=== PATIENT | female | born 1975 | race Hispanic/Latino ===

== ENCOUNTER 2017-11-25 16:59 | Emergency (ER) | payer SELFPAY | END 2017-11-25 18:21 | disposition left against medical advice (07) | LOC: ER 16:59 | DX: Z53.21 Procedure and treatment not carried out due to patient leaving prior to being seen by health care provider (principal) ==

== ENCOUNTER → 2019-10-15 | Outpatient (CLI) | payer OTHER | LOC: MAMMO 15:51 | PROVIDERS: ATTEND Internal Medicine | DX: Z12.31 Encounter for screening mammogram for malignant neoplasm of breast (principal) | CPT/HCPCS: 77067 ==

== ENCOUNTER → 2020-03-29 | Day surgery (SDC) | payer BC, OTHER ==
[~2020-03-29] MED LIST: BUPIVACAINE HCL 0.5% INJ 30 ML VIAL INJ ONE; CEFAZOLIN SOD 1 GM/NS 50ML 100 ML IV ONE; DEXAMETHASONE SOD PHOS INJ 4 MG/ML VIAL ONE; FENTANYL CITRATE/PF 100MCG/2 ML INJ ONE; KETOROLAC TROMETHAMINE 30 MG/ML VIAL ONE; LIDOCAINE HCL 2% LOCAL INJ 5 ML SDV VIAL INJ ONE; MIDAZOLAM HCL 2 MG/2 ML VIAL ONE; NEOMYCIN/POLYMYX/BACITR OINT 0.9 GM PKT ONE; OMEPRAZOLE40 MG PO; ONDANSETRON HCL INJ 2MG/ML 2ML 2 MG/ML VIAL ONE; PROPOFOL IV EMULSION 10 MG/ML 20 ML VIAL ONE; SEVOFLURANE INHAL SOLN 250 ML PEN BTL ONE
--- OUTSIDE RECORDS SUMMARY | 2020-03-29 05:37 | XMS REPORT | Summary of Care ---
Author Author [facility] Outpatient Imaging - [facility] Organization [facility] Outpatient Imaging - [facility] Address Unknown Phone Unavailable Encounter HQ Encntr_alias(FIN) [id number] Date(s): 10/01/17 - 10/01/17 [facility] Outpatient Imaging - [place] [address] [place] [address] [phone] Final: Encounter for screening mammogram for malignant neoplasm of breast Discharge Disposition: Home or Self Care Attending Physician: Jw Davis MD Vital Signs No data available for this section Problem List No data available for this section Allergies, Adverse Reactions, Alerts No data available for this section Medications No data available for this section Results No data available for this section Immunizations No data available for this section Procedures No data available for this section Social History No data available for this section Assessment and Plan No data available for this section
--- OUTSIDE RECORDS SUMMARY | 2020-03-29 05:37 | XMS REPORT | Summary of Care ---
Author Author [facility] Outpatient Imaging - [facility] Organization [facility] Outpatient Imaging - [facility] Address Unknown Phone Unavailable Encounter HQ Encntr_alias(FIN) [id number] Date(s): 10/23/17 - 10/23/17 [facility] Outpatient Imaging - [place] [address] [place] [address] [place] [address] [phone] Discharge Disposition: Home or Self Care Attending [...]
--- OUTSIDE RECORDS SUMMARY | 2020-03-29 05:37 | XMS REPORT | Summary of Care ---
Author Author [facility] Outpatient Imaging - [facility] Organization [facility] Outpatient Imaging - [facility] Address Unknown Phone Unavailable Encounter HQ Encntr_alias(FIN) [id number] Date(s): 04/28/18 - 04/28/18 [facility] Outpatient Imaging - [address] [place] [address] [phone] Discharge Disposition: Home or Self Care Attending [...]
--- OUTSIDE RECORDS SUMMARY | 2020-03-29 05:37 | XMS REPORT ---
Author Author [facility] t Organization [facility] Address [address] [place] [address] Phone Unavailable Care Team Providers Care Wood Pattern Maker Name Role Phone Wendy Blevins Attphys Madalyn DONIS Attphys Unavailable Polly Gibson Attphys Uriel Davis Attphys Myke Davis Attphys Payers Payer Name Policy Type Policy Number Effective Date Expiration Date S ource Problems This patient has no known problems. Allergies, Adverse Reactions, Alerts Allergy Name Allergy Type Status Severity Reaction(s) Onset Date Inacti ve Date Treating Clinician Comments Source No Known Allergies DA Active U 2019-01-08 00:00:00 [facility] No Known Allergies DA Active U 2017-11-25 00:00:00 [facility] Medications This patient has no known medications. Procedures This patient has no known procedures. Encounters Start Date/Time End Date/Time Encounter Type Admission Type [facility] Care Department Encounter ID Source 2019-11-05 07:45:00 2019-11-05 23:59:00 [id number] Out patient Imaging - [place] 2018-10-30 10:07:00 2018-10-30 23:59:00 Outpatient Tamra Arita [facility] [id number] [facility] Out patient Imaging - [place] 2018-04-28 13:31:00 2018-04-28 23:59:00 Outpatient RyanPedrito philippe [facility] [id number] [facility] Imaging - [place] 2017-10-23 14:29:00 2017-10-23 23:59:00 Outpatient RyanPedritodo Trevino [facility] [id number] [facility] Imaging - [place] 2017-10-01 11:31:00 2017-10-01 23:59:00 Outpatient RyanPedrito Uriel [facility] [id number] [facility] Imaging - [place] 2016-09-28 10:04:00 2016-09-28 23:59:00 Outpatient RyanPedrito Myke [facility] [id number] [facility] Imaging - [place] Results Test Description Test Time Test Comments Results Result Comments Source MAMMOGRAPHY DIGITAL SCR BILAT 2019-10-15 16:31:00 [place] [address] Patient Name: CHRISTOPH JIANG MR #: [id number] : 1975 Age/Sex: 44/F Req #: [id number] [facility] Physician: Ordered by: DONAVAN DONIS MD Report #: [id number] Location: [facility] Room/Bed: Procedure: [id number] MG/MAMMOGRAPHY DIGITAL SCR BILAT Exam Date: 10/15/19 Exam Time: 1602 REPORT STATUS: Signed #[id number] - MGSCRBIL #BILATERAL DIGITAL SCREENING MAMMOGRAM WITH CAD: 10/15/2019 CLINICAL: Routine screening. Comparison is made to exams dated: 10/30/2018 mammogram and 10/30/2018 ultrasound - [facility]. Current study contains 4 films. The tissue of both breasts is heterogeneously dense. This may lower the sensitivity of mammography. Current study was also evaluated with a Computer Aided Detection (CAD) system. There are multiple stable benign fine calcifications throughout both breasts consistent with sclerosing adenosis. No significant masses, calcifications, or other findings are seen in either breast. IMPRESSION: BENIGN There is no mammographic evidence of malignancy. A 1 year screening mammogram is recommended. The patient will be notified by letter of the results. MOHIT briones/jayden:10/22/2019 15:42:08 Type Rolling Machine Operator: Mandy HERNANDEZ (R)), [facility] letter sent: Normal Exam Mammogram BI-RADS: 2 Benign Dictated By: MOHIT BOLTON MD 41 Transcribed By: JAYDEN on 10/22/191541 COPY TO: DONAVAN DONIS MD [facility] 2019-01-14 13:58:00 RUN DATE: 01/14/19 [place] [facility] PAGE 1 RUN TIME: 1358 Specimen Inquiry RUN USER: INTERFACE PATIENT: CHRISTOPH JIANG LOC: JOANNA U #: [id number] AGE/SX: 43/F ROOM: Madina2029 RE01/13/19REG DR: Jw Davis MD : 71 BED: A DIS: 01/14/19 STATUS: DIS Adalberto TLOC: SPEC #: [id number] RECD: 01/13/19 STATUS: DEQUAN RIZVI #: [id number] LATASHA: 01/13/19- SUBM DR: Jw Davis MD ENTERED: 01/13/19 SP TYPE: UTERUS OTHR DR: Ole Diop MD ORDERED: GROSS COPIES TO: Jw Davis MD [address] [facility] [place] [address] Ole Diop MD [address] [place] [address] MARKERS: ABNORMAL TISSUE, UTERUS PROCEDURES: GROSS (01/14/19-1308) TISSUES: UTERUS, NOS - CERVIX, BILATERAL FALLOPIAN TUBES CLINICAL HISTORY COLLECTION DATE: 01/13/19 MENORRHAGIA FINAL DIAGNOSIS Uterus with bilateral fallopian tubes, hysterectomy and bilateral salpingectomy: CERVIX, NO PATHOLOGIC ALTERATION ENDOMETRIUM, PROLIFERATIVE PATTERN WITH NO HISTOLOGIC EVIDENCE OF CHRONIC ENDOMETRITIS OR HYPERPLASIA MYOMETRIUM, SUPERFICIAL ADENOMYOSIS AND SMALL INTRAMURAL LEIOMYOMA SEROSA, FIBROFATTY ADHESIONS BILATERAL FALLOPIAN TUBES, TRANSECTED AND FIMBRIATED FALLOPIAN TUBES X 2 WITH NO PATHOLOGIC ALTERATION NEGATIVE FOR MALIGNANCY RRB/lynn A [id number] CONTINUED ON NEXT PAGE RUN DATE: 01/14/19 [facility] PAGE 2 RUN TIME: 1358 Specimen Inquiry RUN USER: INTERFACE SPEC #: [id number] PATIENT: CHRISTOPH JIANG #[id number] (Continued) MACROSCOPIC The specimen is received in formalin, labeled with the "uterus, cervix, bilateral fallopian tubes". The specimen consists of a previously opened uterus and detached fallopian tubes. The uterus measures: cornu to cornu 7.0 cm, anterior to posterior- 5.5 cm and fundus to cervix- 8.0 cm. The uterus with attached cervix weighs 237.7 grams. The ectocervix measures 4.0 x 3.0 cm. The endocervical canal measures 3.0 cm. The endocervical mucosa is villanueva and glistening with Nabothian cysts. The endometrial cavity measures 4.0 x 4.0 cm and is lined by a thin [id number]-[id number] glistening endometrium measuring up to 0.2 cm in thickness. Sectioning of the posterior wall of the myometrium shows a single well circumscribed villanueva-white nodule measuring 0.5 cm. There are minute portions of attached adipose tissue to the right parametrium, most likely representing omental adhesions. There is a 2.0 cm attached right fallopian tube and 2.5 cm attached left fallopian tube with no fimbriated end. Sectioning reveals no focal abnormality. Also received in the same container are two portions of fallopian tube with fimbriated ends measuring 2.5 and 4.5 cm in length, and 0.7 and 0.1 cm in diameter. Sectioning reveals no focal abnormality. Section code: 1A- anterior cervix; 1B- posterior cervix; 1C- anterior endomyometrium; 1D- pos terior endomyometrium including the small nodule; 1E- posterior serosa and adhesions of omental tissue to the right parametrium; 1F- special service representative sections of detached fallopian tube with fimbriated ends (no orientation as to right or left) and 1G- special service representative sections of fallopian attached fallopian tube. GROSS PERFORMED AT [facility] [address] [place] [address] (P)[phone] MICROSCOPIC All of the stains, including any controls performed, stain appropriately. MICROSCOPIC PERFORMED AT [facility] [address] [place] [address] (P)[phone] PERFORMING SITE Diagnosis performed at: [facility], [address] [address] CONTINUED ON NEXT PAGE RUN DATE: 01/14/19 [facility] PAGE 3 RUN TIME: 1358 Specimen Inquiry RUN USER: INTERFACE SPEC #: [id number] PATIENT: CHRISTOPH JIANG # [id number] (Continued) [facility] ([facility]) [phone] Signed SIGNATURE ON FILE Anjel Echeverria 01/14/19 1358 END OF REPORT CBC W/AUTO DIFF 2019-01-14 06:19:00 Test Item WHITE BLOOD CELL (test code = WBC) 14.3 K/mm3 4.5-12.5 H RED BLOOD CELL (test code = RBC) 4.44 mill/mm3 3.7-5.2 N HEMOGLOBIN (test code = HGB) 12.4 gram/dL 11.5-15.5 N HEMATOCRIT (test code = HCT) 38.9 % 36.0-46.0 N MEAN CELL VOLUME (test code = MCV) 87.6 fL 80-98 N MEAN CELL HGB (test code = MCH) 27.9 picogram 27.0-33.0 N MEAN CELL HGB CONCETRATION (test code = MCHC) 31.9 gram/dL 33.0-36. 0 L RED CELL DISTRIBUTION WIDTH (test code = RDW) 13.5 % 11.6-16. 2 N RED CELL DISTRIBUTION WIDTH SD (test code = RDW-SD) 43.9 fL 37 .0-51.0 N PLATELET COUNT (test code = PLT) 344 K/mm3 150-450 N MEAN PLATELET VOLUME (test code = MPV) 10.1 fL 6.7-11.0 N NEUTROPHIL % (test code = NT%) 68.9 % 39.0-69.0 N IMMATURE GRANULOCYTE % (test code = IG%) 0.5 % 0.0-5.0 N LYMPHOCYTE % (test code = LY%) 23.2 % 25.0-55.0 L MONOCYTE % (test code = MO%) 6.7 % 0.0-10.0 N EOSINOPHIL % (test code = EO%) 0.4 % 0.0-5.0 N BASOPHIL % (test code = BA%) 0.3 % 0.0-1.0 N NUCLEATED RBC % (test code = NRBC%) 0.0 % 0-0 N NEUTROPHIL # (test code = NT#) 9.85 K/mm3 1.8-7.7 H IMMATURE GRANULOCYTE # (test code = IG#) 0.07 x10 3/uL 0-0.03 H LYMPHOCYTE # (test code = LY#) 3.32 K/mm3 1.0-5.0 N MONOCYTE # (test code = MO#) 0.95 K/mm3 0-0.8 H EOSINOPHIL # (test code = EO#) 0.05 K/mm3 0.0-0.5 N BASOPHIL # (test code = BA#) 0.04 K/mm3 0.0-0.2 N NUCLEATED RBC # (test code = NRBC#) 0.00 K/mm3 0.0-0.1 N MANUAL DIFF REQUIRED (test code = MDIFF) NO CBC W/AUTO [id number] 06:01:00* Test Item Value Reference Range Interpretation Comments WHITE BLOOD CELL (test code = WBC) K/mm3 4.5-12.5 RED BLOOD CELL (test code = RBC) mill/mm3 3.7-5.2 HEMOGLOBIN (test code = HGB) 12.4 gram/dL 11.5-15.5 N HEMATOCRIT (test code = HCT) 38.9 % 36.0-46.0 N MEAN CELL VOLUME (test code = MCV) fL 80-98 MEAN CELL HGB (test code = MCH) picogram 27.0-33.0 MEAN CELL HGB CONCETRATION (test code = MCHC) gram/dL 33.0-36. 0 RED CELL DISTRIBUTION WIDTH (test code = RDW) % 11.6-16. 2 RED CELL DISTRIBUTION WIDTH SD (test code = RDW-SD) fL 37 .0-51.0 PLATELET COUNT (test code = PLT) K/mm3 150-450 MEAN PLATELET VOLUME (test code = MPV) fL 6.7-11.0 NEUTROPHIL % (test code = NT%) % 39.0-69.0 IMMATURE GRANULOCYTE % (test code = IG%) % 0.0-5.0 LYMPHOCYTE % (test code = LY%) % 25.0-55.0 MONOCYTE % (test code = MO%) % 0.0-10.0 EOSINOPHIL % (test code = EO%) % 0.0-5.0 BASOPHIL % (test code = BA%) % 0.0-1.0 NEUTROPHIL # (test code = NT#) K/mm3 1.8-7.7 LYMPHOCYTE # (test code = LY#) K/mm3 1.0-5.0 MONOCYTE # (test code = MO#) K/mm3 0-0.8 EOSINOPHIL # (test code = EO#) K/mm3 0.0-0.5 BASOPHIL # (test code = BA#) K/mm3 0.0-0.2 [id number] 16:50:00* Test Item Value Reference Range Interpretation Comments GLUBED (test code = GLUBED) 115 mg/dL 74-106 H Performed by certified barrel rifler operator at [facility] COMPREHENSIVE METABOLIC [id number] 14:24:00* Test Item Value Reference Range Interpretation Comments SODIUM (test code = NA) 138 mmol/L 136-145 N POTASSIUM (test code = K) 3.8 mmol/L 3.5-5.1 N CHLORIDE (test code = CL) 106.0 mmol/L 98-107 N CARBON DIOXIDE (test code = CO2) 30.0 mmol/L 21-32 N ANION GAP (test code = GAP) 5.8 10-20 L GLUCOSE (test code = GLU) 131 mg/dL 74-106 H BLOOD UREA NITROGEN (test code = BUN) 16 mg/dL 7-18 N GLOMERULAR FILTRATION RATE (test code = GFR) > 60 mL/min >=60 Estimated GFR by using Modified MDRD formula.Chronic kidney disease is defined as either kidney damageor GFR <60 mL/min/1.73 m2 for >3 months. CREATININE (test code = CREAT) 0.60 mg/dL 0.55-1.02 N Note change in reference range due to change in reagent. BUN/CREATININE RATIO (test code = BUN/CREA) 25.6 10-20 H TOTAL PROTEIN (test code = PROT) 7.8 gram/dL 6.4-8.2 N ALBUMIN (test code = ALB) 3.4 g/dL 3.4-5.0 N GLOBULIN (test code = GLOB) 4.4 gram/dL 2.7-4.2 H ALBUMIN/GLOBULIN RATIO (test code = A/G) 0.8 0.75-1.50 N CALCIUM (test code = CA) 8.1 mg/dL 8.5-10.1 L BILIRUBIN TOTAL (test code = BILT) 0.40 mg/dL 0.0-1.0 N SGOT/AST (test code = AST) 18 IUnit/L 15-37 N SGPT/ALT (test code = ALT) 33 IUnit/L 12-78 N ALKALINE PHOSPHATASE TOTAL (test code = ALKP) 118 IUnit/L 45-117 H Note change in reference range due to change in reagent. HCG SERUM [id number] 14:24:00* Test Item Value Reference Range Interpretation Comments HCG SERUM QUAL (test code = HCGQL) NEGATIVE NEGATIVE This HCGQL test is NOT applicable for MALE patients.Check with nurse about probable order error.If Tumor Marker Test needed, nurse should order test "HCGTU"(Test #550.74076) COMPREHENSIVE METABOLIC [id number] 14:15:00* Test Item Value Reference Range Interpretation Comments SODIUM (test code = NA) 138 mmol/L 136-145 N POTASSIUM (test code = K) 3.8 mmol/L 3.5-5.1 N CHLORIDE (test code = CL) 106.0 mmol/L 98-107 N CARBON DIOXIDE (test code = CO2) mmol/L 21-32 ANION GAP (test code = GAP) 10-20 GLUCOSE (test code = GLU) mg/dL 74-106 BLOOD UREA NITROGEN (test code = BUN) mg/dL 7-18 GLOMERULAR FILTRATION RATE (test code = GFR) mL/min >=60 CREATININE (test code = CREAT) mg/dL 0.55-1.02 BUN/CREATININE RATIO (test code = BUN/CREA) 10-20 TOTAL PROTEIN (test code = PROT) gram/dL 6.4-8.2 ALBUMIN (test code = ALB) g/dL 3.4-5.0 GLOBULIN (test code = GLOB) gram/dL 2.7-4.2 ALBUMIN/GLOBULIN RATIO (test code = A/G) 0.75-1.50 CALCIUM (test code = CA) mg/dL 8.5-10.1 BILIRUBIN TOTAL (test code = BILT) mg/dL 0.0-1.0 SGOT/AST (test code = AST) IUnit/L 15-37 SGPT/ALT (test code = ALT) IUnit/L 12-78 ALKALINE PHOSPHATASE TOTAL (test code = ALKP) IUnit/L 45-117 HCG SERUM [id number] 14:15:00* Test Item Value Reference Range Interpretation Comments HCG SERUM QUAL (test code = HCGQL) NEGATIVE NEGATIVE This HCGQL test is NOT applicable for MALE patients.Check with nurse about probable order error.If Tumor Marker Test needed, nurse should order test "HCGTU"(Test #550.06852) COMPREHENSIVE METABOLIC [id number] 14:12:00* Test Item Value Reference Range Interpretation Comments SODIUM (test code = NA) 138 mmol/L 136-145 N POTASSIUM (test code = K) 3.8 mmol/L 3.5-5.1 N CHLORIDE (test code = CL) 106.0 mmol/L 98-107 N CARBON DIOXIDE (test code = CO2) mmol/L 21-32 ANION GAP (test code = GAP) 10-20 GLUCOSE (test code = GLU) mg/dL 74-106 BLOOD UREA NITROGEN (test code = BUN) mg/dL 7-18 GLOMERULAR FILTRATION RATE (test code = GFR) mL/min >=60 CREATININE (test code = CREAT) mg/dL 0.55-1.02 BUN/CREATININE RATIO (test code = BUN/CREA) 10-20 TOTAL PROTEIN (test code = PROT) gram/dL 6.4-8.2 ALBUMIN (test code = ALB) g/dL 3.4-5.0 GLOBULIN (test code = GLOB) gram/dL 2.7-4.2 ALBUMIN/GLOBULIN RATIO (test code = A/G) 0.75-1.50 CALCIUM (test code = CA) mg/dL 8.5-10.1 BILIRUBIN TOTAL (test code = BILT) mg/dL 0.0-1.0 SGOT/AST (test code = AST) IUnit/L 15-37 SGPT/ALT (test code = ALT) IUnit/L 12-78 ALKALINE PHOSPHATASE TOTAL (test code = ALKP) IUnit/L 45-117 HCG SERUM [id number] 14:12:00* Test Item Value Reference Range Interpretation Comments HCG SERUM QUAL (test code = HCGQL) NEGATIVE CBC W/AUTO [id number] 13:29:00* Test Item Value Reference Range Interpretation Comments WHITE BLOOD CELL (test code = WBC) 8.6 K/mm3 4.5-12.5 N RED BLOOD CELL (test code = RBC) 4.78 mill/mm3 3.7-5.2 N HEMOGLOBIN (test code = HGB) 13.4 gram/dL 11.5-15.5 N HEMATOCRIT (test code = HCT) 41.3 % 36.0-46.0 N MEAN CELL VOLUME (test code = MCV) 86.4 fL 80-98 N MEAN CELL HGB (test code = MCH) 28.0 picogram 27.0-33.0 N MEAN CELL HGB CONCETRATION (test code = MCHC) 32.4 gram/dL 33.0-36. 0 L RED CELL DISTRIBUTION WIDTH (test code = RDW) 13.2 % 11.6-16. 2 N RED CELL DISTRIBUTION WIDTH SD (test code = RDW-SD) 41.9 fL 37 .0-51.0 N PLATELET COUNT (test code = PLT) 350 K/mm3 150-450 N MEAN PLATELET VOLUME (test code = MPV) 9.8 fL 6.7-11.0 N NEUTROPHIL % (test code = NT%) 59.5 % 39.0-69.0 N IMMATURE GRANULOCYTE % (test code = IG%) 0.3 % 0.0-5.0 N LYMPHOCYTE % (test code = LY%) 32.6 % 25.0-55.0 N MONOCYTE % (test code = MO%) 5.9 % 0.0-10.0 N EOSINOPHIL % (test code = EO%) 1.4 % 0.0-5.0 N BASOPHIL % (test code = BA%) 0.3 % 0.0-1.0 N NUCLEATED RBC % (test code = NRBC%) 0.0 % 0-0 N NEUTROPHIL # (test code = NT#) 5.11 K/mm3 1.8-7.7 N IMMATURE GRANULOCYTE # (test code = IG#) 0.03 x10 3/uL 0-0.03 N LYMPHOCYTE # (test code = LY#) 2.81 K/mm3 1.0-5.0 N MONOCYTE # (test code = MO#) 0.51 K/mm3 0-0.8 N EOSINOPHIL # (test code = EO#) 0.12 K/mm3 0.0-0.5 N BASOPHIL # (test code = BA#) 0.03 K/mm3 0.0-0.2 N NUCLEATED RBC # (test code = NRBC#) 0.00 K/mm3 0.0-0.1 N MANUAL DIFF REQUIRED (test code = MDIFF) NO CBC W/AUTO [id number] 13:27:00* Test Item Value Reference Range Interpretation Comments WHITE BLOOD CELL (test code = WBC) K/mm3 4.5-12.5 RED BLOOD CELL (test code = RBC) mill/mm3 3.7-5.2 HEMOGLOBIN (test code = HGB) 13.4 gram/dL 11.5-15.5 N HEMATOCRIT (test code = HCT) 41.3 % 36.0-46.0 N MEAN CELL VOLUME (test code = MCV) fL 80-98 MEAN CELL HGB (test code = MCH) picogram 27.0-33.0 MEAN CELL HGB CONCETRATION (test code = MCHC) gram/dL 33.0-36. 0 RED CELL DISTRIBUTION WIDTH (test code = RDW) % 11.6-16. 2 RED CELL DISTRIBUTION WIDTH SD (test code = RDW-SD) fL 37 .0-51.0 PLATELET COUNT (test code = PLT) K/mm3 150-450 MEAN PLATELET VOLUME (test code = MPV) fL 6.7-11.0 NEUTROPHIL % (test code = NT%) % 39.0-69.0 IMMATURE GRANULOCYTE % (test code = IG%) % 0.0-5.0 LYMPHOCYTE % (test code = LY%) % 25.0-55.0 MONOCYTE % (test code = MO%) % 0.0-10.0 EOSINOPHIL % (test code = EO%) % 0.0-5.0 BASOPHIL % (test code = BA%) % 0.0-1.0 NEUTROPHIL # (test code = NT#) K/mm3 1.8-7.7 LYMPHOCYTE # (test code = LY#) K/mm3 1.0-5.0 MONOCYTE # (test code = MO#) K/mm3 0-0.8 EOSINOPHIL # (test code = EO#) K/mm3 0.0-0.5 BASOPHIL # (test code = BA#) K/mm3 0.0-0.2
--- OUTSIDE RECORDS SUMMARY | 2020-03-29 05:37 | XMS REPORT | Summary of Care ---
Author Author [facility] Outpatient Imaging - [facility] Organization [facility] Outpatient Imaging - [facility] Address Unknown Phone Unavailable Encounter HQ Encntr_alias(FIN) [id number] Date(s): 09/28/16 - 09/28/16 [facility] Outpatient Imaging - [place] [address] [place] [phone] Discharge Disposition: Home or Self Care Attending [...]
--- OUTSIDE RECORDS SUMMARY | 2020-03-29 05:37 | XMS REPORT | Continuity of Care Document ---
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 11/05/2019 [facility] [place] Other abnormal and inconclusive findings on diagnostic imaging of breast 11/07/2018 05/20/2019 [facility] [place] Z12.31 - ENCNTR SCREEN MAMMOGRAM FOR MA Active 08/23/2016 [facility] [place] R88 - ABNORMAL FINDINGS IN OTHER BOD Active 10/07/2015 [facility] [place] Encounter for screening mammogram for ma lignant neoplasm of breast 10/04/2017 [facility] [place] Unspecified lump in the right breast, up per outer quadrant 05/20/2019 [facility] [place] Solitary cyst of right breast 05/20/2019 [facility] [place] Family history of malignant neoplasm of breast 05/20/2019 [facility] [place] Medications No Data Provided for This Section Allergies, Adverse Reactions, Alerts No Known Medication Allergies Immunizations No Data Provided for This Section Results No Data Provided for This Section Pathology Reports No Data Provided for This Section Diagnostic Reports Report Value Date Source Ankle wo contrast MRI EXAMINAT ION: MR left ankle without contrast HISTORY: M72.2 Plantar fascial fibromatosis; left hindfoot plantar fasciitis COMPARISON: There are no radiographs available for review. TECHNIQUE: Multiplanar, multisequence magnetic resonance imaging of the left ankle and hindfoot is performed with an extremity coil without contrast. FINDINGS: Ligaments: Lateral: AITFL and PITFL: The anterior/inferior tibiofibular and posterior/inferior tibiofibular syndesmotic ligaments are intact. ATFL: The anterior talofibular ligament is intact, but mildly thickened. CFL: The calcaneofibular ligament is intact. Medial: Deltoid complex: The superficial and deep components of the deltoid ligament complex including the tibiospring ligament and superomedial component of the calcaneonavicular spring ligament are within normal limits. Tendons: Medial flexor: The medial flexor tendons are within normal limits. Note is made of a small, type I, accessory navicular bone. Peroneal: The lateral peroneal tendons are within normal limits. Extensor: The anterior ankle extensor tendons are within normal limits. Achilles tendon: The Achilles tendon is within normal limits. Plantar fascia: There is mild to moderate focal fascial thickening, increased intrafascial signal, and perifascial edema involving the medial cord of the plantar fascia at its calcaneal attachment, but there is no discrete tear of the plantar fascia (series 4, image 11 and series 6, image 13). There is also mild reactive bone marrow edema within the adjacent plantar posterior calcaneus. There is also a small focus of feathery edema involving the flexor digitorum brevis muscle along the undersurface of the plantar fascia, centered approximately 3.5 cm distal to the calcaneal attachment (series 4, image 19 and series 6, image 14. Muscles: Again, there is mild feathery edema involving the flexor digitorum brevis muscle adjacent to the plantar fascia. There is normal signal intensity and bulk of the remainder of the intrinsic foot musculature. Cartilage: There is no focal chondrosis or subchondral marrow edema. No osteochondral defects. Bone: As described above, there is mild bone marrow edema within the plantar posterior calcaneus adjacent to the site of plantar fasciitis, likely reactive bone marrow edema. There is a focus of susceptibility artifact along the distal aspect of the 1st metatarsal, likely representing postoperative changes from instrumented distal 1st metatarsal osteotomy. There is otherwise normal bone marrow signal intensity without evidence of acute fracture or osteonecrosis. Soft tissue: There is no tibiotalar or subtalar joint effusion. There is normal fatty signal within the sinus Tarsi. IMPRESSION: 1. Mild to moderate plantar fasciitis of the left hindfoot with mild reactive bone marrow edema within the adjacent plantar posterior calcaneus as described above. 2. Mildly thickened, but intact left ank le anterior talofibular ligament, likely representing chronic sequelae of a prior low-grade ligamentous sprain. 3. Focus of susceptibility artifact angelika g the distal aspect of the left 1st metatarsal, likely representing postoperative changes from ischium at the distal 1st metatarsal osteotomy. 11/05/2019 [facility] [place] Breast Complete [facility] US COMPLETE ULTRASOUND OF BOTH BREASTS AND AXILLA: 10/30/2018 CLINICAL: /Z80.3 Family History Of Malignant Neoplasm Of Breast. COMPARISON:Comparison is made to exams dated: 10/30/2018 mammogram, 04/28/2018 ultrasound, 10/23/2017 ultrasound, 10/23/2017 mammogram, 10/01/2017 mammogram, and 09/28/2016 mammogram - [facility]. TECHNIQUE: Color flow and real-time ultrasound of the right breast four quadrants, retroareolar, and axilla regions and ultrasound of the left breast four quadrants, retroareolar, and axilla regions were performed on the areas of interest. FINDINGS: There is a stable 0.8 cm x 0.5 cm x 0.5 cm oval mass with a circumscribed margin in the right breast at 10 o'clock middle depth 6 cm from the nipple. This oval mass is hypoechoic. There also is a stable 0.8 cm cluster of cysts in the right breast at 9 o'clock middle depth 4 cm from the nipple. Small scattered cysts are noted bilaterally. IMPRESSION: PROBABLY BENIGN RECOMMENDATION:The stable 0.8 cm x 0.5 cm x 0.5 cm oval mass in the right breast at 10 o'clock middle depth resembles a fibroadenoma and is probably benign. The stable 0.8 cm cluster of cysts in the right breast at 9 o'clock middle depth is probably benign. A follow-up mammogram and an ultrasound in 12 months is recommended.(10/30/2019) This exam was interpreted at [id number] for VERONICA Montemayor, SL 15. Professional services are provided by the [facility]. Skip Garcia M.D., cm/jayden:10/30/2018 13:58:29 Projection Engineer(s): RT Shandra(R)(M), [facility] letter sent: BI-RADS 3 Ultrasound BI-RADS: 3 Probably benign 10/30/2018 [facility]ON[facility] Montemay[facility] Breast Mammo Diag [facility] incl CAD MA BILATERAL DIGITAL DIAGNOSTIC MAMMOGRAM WITH CAD: 10/30/2018 CLINICAL: Other Abnormal And Inconclusive Findings On Diagnostic Imaging Of Breast/R92.8. Current study was evaluated with a Computer Aided Detection (CAD) system. COMPARISON:Comparison is made to exams dated: 10/23/2017 mammogram, 10/01/2017 mammogram, 09/28/2016 mammogram - [facility], and 09/06/2015 mammogram - [facility]. TECHNIQUE: Mammographic views were obtained using digital acquisition. Current study was also evaluated with a Computer Aided Detection (CAD) system. FINDINGS: The tissue of both breasts is heterogeneously dense, which could obscure detection of small masses. Multiple bilateral asymmetries are stable when accounting for differences in positioning and technique. There are benign appearing calcifications in both breasts. No significant masses, calcifications, or other findings are seen in either breast. IMPRESSION: BENIGN RECOMMENDATION:There is no mammographic evidence of malignancy. A 1 year screening ultrasound is recommended.(10/31/2019) This exam was interpreted at [id number] for VERONICA Montemayor, SL 15. Professional services are provided by the [facility]. Skip Garcia M.D., cm/jayden:10/30/2018 11:09:56 Projection Engineer(s): RT Vannesa(R)(M), [facility] Mammogram BI-RADS: 2 Benign [facility] ULTRASOUND OF RIGHT BREAST: 04/28/2018 CLINICAL: 6 Month Follow Up Right Breast/N64.59 Other Signs And Symptoms In Breast. COMPARISON:Comparison is made to exams dated: 10/23/2017 ultrasound, 10/23/2017 mammogram, 10/01/2017 mammogram, 09/28/2016 mammogram - [facility], and 09/06/2015 mammogram - [facility]. TECHNIQUE: Color flow and real-time ultrasound of the right breast were performed on the areas of interest. FINDINGS: There is a stable 0.8 cm x 0.5 cm x 0.5 cm oval mass with a circumscribed margin in the right breast at 10 o'clock middle depth 6 cm from the nipple. This oval mass is hypoechoic. There also is a stable 0.8 cm cluster of cysts in the right breast at 9 o'clock middle depth 4 cm from the nipple. Small scattered cysts are noted bilaterally. IMPRESSION: PROBABLY BENIGN RECOMMENDATION:The stable 0.8 cm x 0.5 cm x 0.5 cm oval mass in the right breast at 10 o'clock middle depth resembles a complicated cyst or a fibroadenoma and is probably benign. The stable 0.8 cm cluster of cysts in the right breast at 9 o'clock middle depth is probably benign. A follow-up mammogram and an ultrasound in 6 months is recommended to demonstrate stability.(10/28/2018) This exam was interpreted at [id number] for VERONICA Montemayor, SL 15. Professional services are provided by the [facility]. Skip Garcia M.D., cm/jayden:04/28/2018 15:17:34 Projection Engineer(s): Sheila Ricardo [facility] letter sent: BI-RADS 3 Ultrasound BI-RADS: 3 Probably benign 04/28/2018 [facility] Breast Complete [facility] US CLINICAL: Bilateral Breast Asymmetries/N64.59 Other Signs And Symptoms In Breast. COMPARISON:Comparison is made to exams dated: 10/23/2017 mammogram, 10/01/2017 mammogram, 09/28/2016 mammogram - [facility], and 09/06/2015 mammogram - [facility]. TECHNIQUE: Color flow and real-time ultrasound of both breasts four quadrants, retroareolar, and axilla regions were performed on the areas of interest. FINDINGS: There is 0.8 cm x 0.5 cm x 0.5 cm oval mass with a circumscribed margin in the right breast at 10 o'clock middle depth 6 cm from the nipple. This oval mass is hypoechoic. There also is a 0.8 cm cluster of cysts in the right breast at 9 o'clock middle depth 4 cm from the nipple. No abnormalities were seen sonographically in the left breast or either axilla. Small scattered cysts are noted bilaterally. IMPRESSION: PROBABLY BENIGN RECOMMENDATION:The 0.8 cm x 0.5 cm x 0.5 cm oval mass in the right breast at 10 o'clock middle depth resembles a complicated cyst or a fibroadenoma and is probably benign. The 0.8 cm cluster of cysts in the right breast at 9 o'clock middle depth is probably benign. A follow-up ultrasound in 6 months is recommended to demonstrate stability.(04/24/2018) This exam was interpreted at [id number] for VERONICA Montemayor. Skip Garcia M.D. cm/penrad:10/23/2017 16:12:00 Projection Engineer(s): Sheila Ricardo, [facility] letter sent: BI-RADS 3 Ultrasound BI-RADS: 3 Probably benign 10/23/2017 [facility] Breast Mammo Diag [facility] incl CAD MA CLINICAL: N64.59/Other Signs And Symptoms In Breast. Current study was evaluated with a Computer Aided Detection (CAD) system. COMPARISON:Comparison is made to exams dated: 10/01/2017 mammogram, 09/28/2016 mammogram - [facility], and 09/06/2015 mammogram - [facility]. TECHNIQUE: Mammographic views were obtained using digital acquisition. Current study was also evaluated with a Computer Aided Detection (CAD) system. FINDINGS: The tissue of both breasts is heterogeneously dense, which could obscure detection of small masses. There is 1 cm x 7.4 cm equal density asymmetry in the right breast posterior depth medial region seen on the craniocaudal view only. This finding becomes less prominent on spot images and may represent overlapping tissue. There is 0.7 cm asymmetry in the left breast middle depth lateral region seen on the craniocaudal view only 9.4 cm from the nipple. This finding becomes less prominent on spot images and may represent overlapping tissue. No other significant masses or calcifications are seen in either breast. IMPRESSION: INCOMPLETE: NEEDS ADDITIONAL IMAGING EVALUATION RECOMMENDATION:The 1 cm x 7.4 cm equal density asymmetry in the right breast posterior depth medial region seen on the craniocaudal view only is indeterminate. An ultrasound is recommended. The 0.7 cm asymmetry in the left breast middle depth lateral region seen on the craniocaudal view only is indeterminate. An ultrasound is recommended. This exam was interpreted at [id number] for VERONICA Montemayor. Skip Garcia M.D. cm/penrad:10/23/2017 15:29:32 Projection Engineer(s): Misa Du, RT(R)(M), [facility] Mammogram BI-RADS: 0 Indeterminate 10/23/2017 [facility] Breast Mammo Scrn [place] incl CAD MA BILATERAL DIGITAL SCREENING MAMMOGRAM WITH CAD: 10/01/2017 CLINICAL: Encounter For Screening Mammogram For Malignant Neoplasm Of Breast/Z12.31. Current study was evaluated with a Computer Aided Detection (CAD) system. COMPARISON:Comparison is made to exams dated: 09/28/2016 mammogram - [facility] and 09/06/2015 mammogram - [facility]. TECHNIQUE: Mammographic views were obtained using digital acquisition. Current study was also evaluated with a Computer Aided Detection (CAD) system. The tissue of both breasts is heterogeneously dense, which could obscure detection of small masses. FINDINGS: There is 1 cm x 7.4 cm equal density asymmetry in the right breast middle depth medial region seen on the craniocaudal view only. There is 0.7 cm asymmetry in the left breast middle depth lateral region seen on the craniocaudal view only 9.4 cm from the nipple. No other significant masses or calcifications are seen in either breast. IMPRESSION: INCOMPLETE: NEEDS ADDITIONAL IMAGING EVALUATION RECOMMENDATION:The 1 cm x 7.4 cm equal density asymmetry in the right breast middle depth medial region seen on the craniocaudal view only is indeterminate. Diagnostic mammography with possible ultrasound are recommended. The 0.7 cm asymmetry in the left breast middle depth lateral region seen on the craniocaudal view only is indeterminate. Diagnostic mammography with possible ultrasound are recommended. This exam was interpreted at [id number] at [facility]. SUMMARY: The staff from [facility] will contact the patient to schedule the additional studies. A separate report will be issued following interpretation of the additional studies. Juliet Weiss M.D., kg/jayden:10/02/2017 07:59:13 Projection Engineer(s): RT Vannesa(R)(M), [facility] letter sent: BI-RADS 0 Mammogram BI-RADS: 0 Indeterminate 10/01/2017 [facility] [place] Digital Mammo Screening [facility] MA - DIGITAL MAMMO SCREENING [place] MA BILATERAL DIGITAL SCREENING MAMMOGRAM WITH CAD: 09/28/2016 CLINICAL: Z12.31 Encounter For Screening Mammogram For Malignant Neoplasm Of Breast. Current study was evaluated with a Computer Aided Detection (CAD) system. Comparison is made to exam dated: 09/06/2015 mammogram - [facility]. The tissue of both breasts is heterogeneously dense, which could obscure detection of small masses. There are benign calcifications in both breasts. No significant masses, calcifications, or other findings are seen in either breast. There has been no significant interval change. IMPRESSION: BENIGN There is no mammographic evidence of malignancy. A 1 year screening mammogram is recommended. Professional services are provided by the [facility]. Skip Garcia M.D. cm/penrad:10/08/2016 11:20:17 Projection Engineer: Misa WEINER(Leroy)(Madalyn), Khushbu Montemayor This exam was dictated and interpreted by [id number] for EDIN Lazcano 15. letter sent: Normal exam Mammogram BI-RADS: 2 Benign 09/28/2016 [facility] [place] Consultation Notes No Data Provided for This Section Discharge Summaries No Data Provided for This Section History and Physicals No Data Provided for This Section Vital Signs No Data Provided for This Section Encounters Location Location Details Encounter Type Encounter Number Reason For Visit Attending Provider ADM Date DC Date Status Source [facility] [place] [facility] [id number] 01 Jw Davis 09/28/2016 09/29/2016 [facility] [place] [facility] [id number] Jw Davis 10/01/2017 10/02/2017 [facility] [place] [place] [facility] [id number] 03 Jw Davis 10/23/2017 10/24/2017 [facility] [place] [place] [facility] [id number] 04 Jw Davis 04/28/2018 04/29/2018 [facility] [place] [facility] [id number] 05 Tamra Gibson 10/30/2018 10/31/2018 [facility] [place] [facility] [place] [facility] [id number] 06 Dorita Blevins 11/05/2019 11/06/2019 [facility] [place] Procedures No Data Provided for This Section Assessment and Plan No Data Provided for This Section Plan of Care No Data Provided for This Section Social History Social History Date Source Social History TypeResponse 11/06/2019 [facility] [place] Family History No Data Provided for This Section Advance Directives No Data Provided for This Section Functional Status No Data Provided for This Section
--- OUTSIDE RECORDS SUMMARY | 2020-03-29 05:37 | XMS REPORT | Summary of Care ---
Author Author [facility] Outpatient Imaging - [facility] Organization [facility] Outpatient [facility] - [facility] Address Unknown Phone Unavailable Encounter HQ John(FIN) [id number] Date(s): 10/30/18 - 10/30/18 [facility] Outpatient Imaging - [place] [address] [place] [address] [phone] Encounter Diagnosis Other abnormal and inconclusive findings on diagnostic imaging of breast (Final) - 11/06/18 Unspecified lump in the right breast, upper outer quadrant (Final) - Solitary cyst of right breast (Final) - Family history of malignant neoplasm of breast (Final) - Discharge Disposition: Home or Self Care Attending Physician: Tamra Gibson MD Referring Physician: Tamra Gibson MD Vital Signs No data available for [...]
--- OUTSIDE RECORDS SUMMARY | 2020-03-29 05:37 | XMS REPORT | Summary of Care ---
Author Author [facility] Outpatient Imaging - [facility] Organization [facility] Outpatient Imaging - [facility] Address Unknown Phone Unavailable Encounter HQ Jenniferntr_freya(FIN) [id number] Date(s): 11/05/19 - 11/05/19 [facility] Outpatient Imaging - [address] [place], [place] [address] [phone] Discharge Disposition: Home or Self Care Attending Physician: Dorita Blevins DPM Referring Physician: Dorita Blevins DPM Vital Signs No data available for this section Problem List No data available for this section Allergies, Adverse Reactions, Alerts No data available for this section Medications No data available for this section Results No data available for this section Immunizations No data available for this section Procedures No data available for this section Social History Social History Type Response Assessment and Plan No data available for this section
[2020-03-29 08:50] VITALS: BP 109/76
--- NOTE | 2020-03-29 09:08 | Operative Report ---
DATE OF PROCEDURE: 03/29/2020 SURGEON: Dorita Blevins DPM PICTURE ENGRAVER: None. PREOPERATIVE DIAGNOSIS: Chronic plantar fasciitis with bone spur, left foot. POSTOPERATIVE DIAGNOSIS: Chronic plantar fasciitis with bone spur, left foot. PROCEDURES: 1. Endoscopic plantar fasciotomy with removal of bone spur, left foot. 2. Use of human allograft to prevent adhesions to promote healing. COMPLICATIONS: None. CONDITION: Stable. ANESTHESIA: General anesthetic with a local block consisting of 10 mL of 0.5 Marcaine plain. PROCEDURE IN DETAIL: Under mild sedation, the patient was brought to the operating room, placed on the operating table in supine position. Following IV sedation, anesthesia was obtained with a general anesthetic. At this point, the left foot scrubbed, prepped, and draped in the usual aseptic manner and was lowered to the table. The pneumatic ankle tourniquet was inflated to 250 mmHg. Attention was then directed to the medial aspect of the left foot where a linear incision was made overlying the incision of the plantar fascia. The incision was deepened down to the level of the plantar fascia. A trocar and cannula were then inserted after the fascia was isolated with the fascia isolator. A lateral incision was made for the lateral portal to come out. The trocar was removed. The camera was inserted. Medial, central and lateral bands were visualized utilizing of fascia blade. Medial and central bands were transected through and through. The lateral band was left intact. All instruments were removed. With the use of intraoperative fluoroscopy, the bone spur was then isolated utilizing a hand rasp and a power rasp. The bone spur was removed, this was noted clinically with use of intraoperative fluoroscopy. The area was then flushed with copious amount of normal sterile saline solution. Human allograft was then inserted into the area of the incision and noted to promote healing after the area was flushed with copious amount of normal sterile saline solution. The area was then closed closing the deepest layer with 4-0 nylon. Clean dressing was applied consisting of Adaptic, Coban, 4x4s, Kerlix, and an Jay bandage. The tourniquet was deflated. There was noted to be hyperemic response to all the digits. The patient tolerated procedure well without complications, was transferred to the recovery room with vital signs stable and vascular status intact. She will be discharged home when she meets criteria. She was given instructions to be nonweightbearing to ice and elevate the foot while at rest. Follow up with me in the office and to call the office if any questions, concerns, or new problems arise. SHO Uriostegui/SAMI /[id number] JACLYN
== END | disposition home or self-care (01) ==
LOC: OR 05:34
PROVIDERS: ATTEND Podiatrist Foot & Ankle Surgery
DX: M72.2 Plantar fascial fibromatosis (principal); M77.9 Enthesopathy, unspecified; Z01.812 Encounter for preprocedural laboratory examination; Z11.59 Encounter for screening for other viral diseases
CPT/HCPCS: 28104; 29893; 87635; J0690; J1100; J1885; J2001; J2250; J2405; J2704; J3010; Q4150; 76000

== ENCOUNTER 2023-11-23 16:28 | Emergency (ER) | payer BC, OTHER ==
[~2023-11-23] VITALS: Ht 154.9 cm; Wt 97.5 kg
[~2023-11-23 16:28] MED LIST changes: -BUPIVACAINE HCL 0.5% INJ 30 ML VIAL INJ ONE; -CEFAZOLIN SOD 1 GM/NS 50ML 100 ML IV ONE; -DEXAMETHASONE SOD PHOS INJ 4 MG/ML VIAL ONE; -FENTANYL CITRATE/PF 100MCG/2 ML INJ ONE; -KETOROLAC TROMETHAMINE 30 MG/ML VIAL ONE; -LIDOCAINE HCL 2% LOCAL INJ 5 ML SDV VIAL INJ ONE; -MIDAZOLAM HCL 2 MG/2 ML VIAL ONE; -NEOMYCIN/POLYMYX/BACITR OINT 0.9 GM PKT ONE; -ONDANSETRON HCL INJ 2MG/ML 2ML 2 MG/ML VIAL ONE; -PROPOFOL IV EMULSION 10 MG/ML 20 ML VIAL ONE; -SEVOFLURANE INHAL SOLN 250 ML PEN BTL ONE
[2023-11-23] MEDS ORDERED: ONDANSETRON HCL INJ 2MG/ML 2ML 2 MG/ML VIAL IV STA (16:35)
[2023-11-23] MEDS ORDERED: SODIUM CHLORIDE FLUSH 10 ML SYR IV PRN (16:45)
[2023-11-23] MEDS ORDERED: ASPIRIN 81 MG CHEW TAB PO ONE (16:45)
[2023-11-23] MEDS ORDERED: SODIUM CHLORIDE 0.9% 1000ML 1,000 ML IV ONE (16:45)
[2023-11-23] MEDS ORDERED: LORAZEPAM INJ 2 MG/ML VIAL IV ONE (16:45)
[2023-11-23 16:49] LABS: BASOPHILS % 0.2 % (0.0-1.0); EOSINOPHILS # (AUTO) 0.2 (0.0-0.4); HEMATOCRIT 46.3 % (34.2-44.1); HEMOGLOBIN 15.3 g/dL (12.0-16.0); LYMPHOCYTES % 38.9 % (18.0-39.1); MEAN CORPUSCULAR HEMOGLOBIN 30.1 pg (28-32); MONOCYTES # (AUTO) 0.5 (0.2-0.8); MONOCYTES % 5.2 % (4.4-11.3); NEUTROPHILS # (AUTO) 5.5 (2.1-6.9); NEUTROPHILS % 53.2 % (38.7-80.0); PLATELET COUNT 292 x10e3/uL (140-360); RED BLOOD COUNT 5.09 x10e6/uL (3.6-5.1); WHITE BLOOD COUNT 10.23 x10e3/uL (4.8-10.8)
[2023-11-23 17:07] LABS: ALBUMIN/GLOBULIN RATIO 0.9 (0.8-2.0); ANION GAP 15.2 mmol/L (8-16); BILIRUBIN,TOTAL 0.5 mg/dL (0.2-1.2); CALCIUM 8.9 mg/dL (8.4-10.2); CREATININE, SERUM 0.76 mg/dL (0.57-1.11); POTASSIUM 4.2 mmol/L (3.5-5.1); TOTAL PROTEIN 8.3 g/dL (6.5-8.1)
[2023-11-23 17:13] LABS: TROPONIN I 0.024 ng/mL (0-0.300)
[2023-11-23 18:53] VITALS: BP 159/90; PULSE 78; RESP 16; TEMP 98.4; O2SAT 100
== END 2023-11-23 18:49 | disposition home or self-care (01) ==
LOC: ER 16:34
DX: R06.02 Shortness of breath (principal); I16.0 Hypertensive urgency; E11.65 Type 2 diabetes mellitus with hyperglycemia; R94.31 Abnormal electrocardiogram [ECG] [EKG]
CPT/HCPCS: 36415; 71045; 80053; 83880; 84484; 85025; 93005; 94760; 99284; J2060; J2405; J7030; U0002